=== PATIENT | male | born 1960 | race Hispanic/Latino ===

== ENCOUNTER 2017-07-13 07:37 | Emergency (ER) | payer SELFPAY | END 2017-07-13 08:29 | disposition home or self-care (01) | LOC: ERS 07:37 | DX: M25.511 Pain in right shoulder (principal); F17.210 Nicotine dependence, cigarettes, uncomplicated | CPT/HCPCS: 99283 ==

== ENCOUNTER 2017-09-09 17:55 | Emergency (ER) | payer SELFPAY ==
--- NOTE | 2017-09-09 18:52 | RAD ---
LEFT RIBS: 09/09/17 Four views. HISTORY: Fall with injury to left chest. No evidence of left sided rib fracture identified. No other rib lesion identified. Left lung is well expanded. IMPRESSION: Unremarkable left ribs. POS: [facility]
== END 2017-09-09 19:56 | disposition home or self-care (01) ==
LOC: SCSER 17:55
DX: S20.212A Contusion of left front wall of thorax, initial encounter (principal); E11.9 Type 2 diabetes mellitus without complications; F17.210 Nicotine dependence, cigarettes, uncomplicated; W16.42XA Fall into unspecified water causing other injury, initial encounter